=== PATIENT | male | born 1935 | race Two or more races ===

== ENCOUNTER 2018-08-29 10:59 | Emergency (ER) | payer OTHER ==
[~2018-08-29] VITALS: Ht 170.2 cm; Wt 74.8 kg
--- NOTE | 2018-08-29 11:10 | NUR ---
patient [facility] Ambulife unit 718 "Abdominal Pain x4days NOT going away". on room air, breathing evenly and unlabored. connected to the monitor and pulse ox. IV access initiated, blood drawned. Kept comfortable, will continue to monitor accordingly.
[2018-08-29] MEDS ORDERED: ONDANSETRON HCL/PF 4 MG/2 ML VIAL ONE (11:27)
[2018-08-29] MEDS ORDERED: PANTOPRAZOLE 40 MG VIAL ONE (11:27)
[2018-08-29 11:28] LABS: BASOPHILS % (AUTO) 0.7 % (0.0-2.0); EOSINOPHILS % (AUTO) 0.7 % (0.0-6.0); HEMATOCRIT 40 % (39-51); HEMOGLOBIN 13.6 g/dL (13.5-17.5); LYMPHOCYTES # (AUTO) 0.8 /CMM (0.8-4.8); LYMPHOCYTES % (AUTO) 15.7 % (20.0-44.0); MEAN CORPUSCULAR HGB CONC 34 g/dl (31.0-36.0); MEAN CORPUSCULAR VOLUME 87 fL (80-96); MONOCYTES # (AUTO) 0.4 /CMM (0.1-1.30); MONOCYTES % (AUTO) 7.6 % (2.0-12.0); NEUTROPHILS # (AUTO) 3.9 /CMM (1.8-8.9); NEUTROPHILS % (AUTO) 75.3 % (43.0-81.0); PLATELET COUNT (AUTO) 198 /CMM (150-450); RED BLOOD CELL COUNT(AUTO) 4.57 MIL/uL (4.5-6.0); WHITE BLOOD COUNT (AUTO) 5.1 K/uL (4.3-11.0)
[2018-08-29] MEDS ORDERED: MORPHINE SULFATE INJ 2 MG/ML DISP.SYRIN ONE (11:28)
[2018-08-29] MEDS ORDERED: IV NS 0.9% 1,000 ML BAG IV ONE (11:30)
[2018-08-29] MEDS ORDERED: PANTOPRAZOLE 40 MG VIAL IV ONE (11:30)
[2018-08-29] MEDS ORDERED: CHOL20004 PO (11:30)
[2018-08-29] MEDS ORDERED: METF-837 PO (11:30)
[2018-08-29] MEDS ORDERED: ATOR80TA PO (11:30)
[2018-08-29] MEDS ORDERED: ONDANSETRON HCL/PF 4 MG/2 ML VIAL IVP ONE (11:30)
[2018-08-29] MEDS ORDERED: SENN-168 PO (11:30)
[2018-08-29] MEDS ORDERED: MORPHINE SULFATE INJ 2 MG/ML DISP.SYRIN IV ONE (11:30)
[2018-08-29] MEDS ORDERED: CLOP75TA15 PO (11:30)
[2018-08-29] MEDS ORDERED: TRAZ-182 PO (11:30)
[2018-08-29 11:36] LABS: CALCIUM, SERUM 8.7 mg/dL (8.5-10.1); CARBON DIOXIDE 31 mmol/L (21-32); CHLORIDE 97 mmol/L (98-107); GLUCOSE 89 mg/dL (74-106); POTASSIUM 3.9 mmol/L (3.5-5.1); SODIUM SERUM 130 mmol/L (136-145); UREA NITROGEN, BLOOD 16 mg/dL (7-18)
[2018-08-29 11:41] LABS: ALANINE AMINOTRANSFERASE 38 U/L (12-78); ALBUMIN 3.6 g/dL (3.4-5.0); ALKALINE PHOSPHATASE 73 U/L (46-116); ASPARTATE AMINOTRANSFERASE 26 U/L (15-37); BILIRUBIN,DIRECT 0.2 mg/dL (0.0-0.2); BILIRUBIN,TOTAL 0.5 mg/dL (0.2-1.0); LIPASE 222 U/L (73-393); TOTAL PROTEIN, SERUM 6.5 g/dL (6.4-8.2)
--- NOTE | 2018-08-29 12:27 | NUR ---
urine collected and sent to lab.
[2018-08-29 12:39] LABS: APPEARANCE,URINE Clear (CLEAR); BILIRUBIN,URINE Negative (NEGATIVE); BLOOD, URINE Negative Ery/uL (NEGATIVE); COLOR,URINE Yellow (YELLOW); KETONES,URINE Negative (NEGATIVE); LEUKOCYTE ESTERASE ,URINE Negative (NEGATIVE); NITRITE, URINE Negative (NEGATIVE); PROTEIN,URINE Negative (NEGATIVE); UGLUCOSE Negative (NEGATIVE)
[2018-08-29 12:54] LABS: BACTERIA,URINE Rare /HPF (None Seen); RBC,URINE 0-2 /HPF (0-2); WBC,URINE 0-2 /HPF (0-3)
[2018-08-29 12:55] LABS: SQUAMOUS EPITHELIAL CELL,UR Rare /HPF (None Seen)
--- NOTE | 2018-08-29 13:04 | NUR ---
CALLED CALL A CAR AT [phone] FOR TX ETA OF 1530 WAS GIVEN.
[2018-08-29 13:57] VITALS: BP 135/88
--- NOTE | 2018-08-29 14:01 | NUR ---
Patient discharged to [facility] in stable condition. Written and verbal after care instructions given. Patient verbalizes understanding of instruction.IV removed. Catheter intact and site benign. Pressure and 4x4 applied to site. No bleeding noted. patient picked up by ambulance.
== END 2018-08-29 13:58 | disposition home or self-care (01) ==
LOC: ER 11:01
DX: R10.84 Generalized abdominal pain (principal); I10 Essential (primary) hypertension; E11.9 Type 2 diabetes mellitus without complications; Z79.899 Other long term (current) drug therapy; Z79.84 Long term (current) use of oral hypoglycemic drugs
CPT/HCPCS: 36415; 71045; 74176; 80048; 80076; 81001; 83690; 84484; 85025; 93005; 96374; 96375; 99284; C9113; J2270; J2405; J7030; 81000-TC

== ENCOUNTER 2019-09-01 16:57 | Emergency (ER) | payer OTHER ==
[~2019-09-01] VITALS: Ht 170.2 cm; Wt 69.9 kg
[~2019-09-01 16:57] MED LIST: ATOR80TA PO; CHOL20004 PO; CLOP75TA15 PO; METF-837 PO; SENN-261 PO; TRAZ-182 PO
--- NOTE | 2019-09-01 17:02 | NUR ---
[facility]olis from [facility], sent by PMD due to covid 19 positive, to ER bed 8, hooked to monitor, patient o2 saturation at 98% on RA. provided w warm blanket, awaiting MD pena
[2019-09-01] MEDS ORDERED: METF-440 PO (18:36)
--- NOTE | 2019-09-01 19:07 | NUR ---
per lead case manager, patient will be transferred to [facility] but no transfer info yet. awaiting call back for furher information
--- NOTE | 2019-09-01 19:16 | NUR ---
Pt accepted to [facility] Accepting MD is Dr. Uribe Number for report is [phone]
--- NOTE | 2019-09-01 19:20 | NUR ---
TRANSPORT CALLED ETA IS 45 MINS.
--- NOTE | 2019-09-01 19:21 | NUR ---
report given to mely chirinos for babey
--- NOTE | 2019-09-01 19:21 | NUR ---
[facility] IS TRANSPORT
--- NOTE | 2019-09-01 19:26 | NUR ---
REPORT GIVEN TO AIDA TORREZ OF [facility]
[2019-09-01 20:12] VITALS: BP 122/69
--- NOTE | 2019-09-01 20:12 | NUR ---
[facility] AND TRANSFERRING RESPONSIBILITIES.
== END 2019-09-01 20:13 ==
LOC: ER 16:59
DX: U07.1 COVID-19 (principal); I69.351 Hemiplegia and hemiparesis following cerebral infarction affecting right dominant side; H54.61 Unqualified visual loss, right eye, normal vision left eye; Z79.02 Long term (current) use of antithrombotics/antiplatelets; Z79.84 Long term (current) use of oral hypoglycemic drugs; Z79.899 Other long term (current) drug therapy; I10 Essential (primary) hypertension